=== PATIENT | male | born 1940 | race Caucasian/White ===

== ENCOUNTER 2021-06-02 09:35 | Emergency (ER) | payer OTHER, MEDICARE, SELFPAY ==
[2021-06-02] VITALS (23 sets, daily range): BP systolic 100–177; BP diastolic 71–123; PULSE 70–130; RESP 14–26; TEMP 36.8; O2SAT 90–97
--- NOTE | 2021-06-02 09:30 | RT.EKG_ITS ---
APPROVED REPORT Exam: Resting ECG Reason for Exam: arm pain Patient Location: E HR:104 bpm ECG Measurements Heart Rate 104 AXIS AL [id number] P [id number] QRSd 90 QRS -14 QT 354 T 6 QTc 466 Conclusion Atrial flutter with predominant 3:1 AV block...A-rate 294, multiple Ps Borderline repol abnormality, diffuse leads...ST dep, T flat/neg, ant/lat/inf irregularly irregular rhythm, narrow complex, non ischemic; sawtooth baseline in II, consider Aflutte r v afib
--- NOTE | 2021-06-02 09:45 | RT.EKG_ITS ---
APPROVED REPORT Exam: Resting ECG Reason for Exam: PALPATATIONS Patient Location: E HR:72 bpm ECG Measurements Heart Rate 72 AXIS TX [id number] P [id number] QRSd 86 QRS -13 QT 378 T -2 QTc 413 Conclusion Atrial flutter with predominant 4:1 AV block...A-rate 283, multiple Ps regular, narrow complex, likely flutter waves, non ischemic
--- NOTE | 2021-06-02 10:03 | W.ED.GENAD ---
Discharge Plan Disposition Patient Disposition: HOME Condition: Improving Discharge Details Clinical Impression: Atrial flutter Primary Care Provider: Basia Ruiz ED Provider: Fox Mirza Home Meds and New Rx's Prescriptions: Continued magnesium oxide 420 mg Tablet 420 mg PO DAILY 0RF metoprolol succinate 200 mg Tablet Extended Release 24 Hr 200 mg PO DAILY 0RF acetaminophen-codeine 300-30 mg Tablet 1 tab PO .Q8HRS PRN0RF diltiazem HCl 120 mg Capsule,Extended Release 24hr 120 mg PO DAILY 0RF oxycodone 5 mg Tablet 5 mg PO .Q6HRS 0RF Discharge Instructions Instructions: Atrial Flutter (ED) Additional Instructions: Please be seen by your primary care physician please take your medications as prescribed. Return to the emergency department for any worsening chest pain shortness of breath or any other symptomatology. Your symptoms today were likely caused by fast heart rate in the setting of atrial flutter. Medical Decision Making 80-year-old male history of a flutter on apixaban presents left arm discomfort and 2 days of poor sleep, noted to be tachycardic irregularly irregular rhythm, EKG A. fib versus a flutter, is irregularly irregular narrow complex rhythm without ischemic changes, some sawtooth appearance in lead II, no peripheral edema, neurologically intact, no signs of trauma, full range of motion of bilateral upper extremities, patient did have some diaphoresis before arrival, consider symptomatic A. fib/a flutter with RVR versus ACS versus CHF versus less likely PE or aortic pathology versus less likely infectious process, low suspicion for intracranial process such as ischemic or hemorrhagic stroke. Will provide light fluid, attempt to rate control, as patient is as high as 145 on the monitor, will obtain troponin electrolytes chest x-ray close reassessment 12: 09 patient resting comfortably no acute distress no chest pain or shortness of breath. Rate controlled a flutter at approximately 72 bpm. X-ray clear. Patient feels comfortable following up with primary care. Given home care instructions and return precautions. Lab Data Lab results narrative: Laboratory Tests Range/Units 06/02/21 06/02/21 06/02/21 10:01 10:01 10:01 WBC (4.4-10.8) 10^3/uL 9.16 RBC (4.36-5.78) 10^6/uL 5.82 H Hgb (13.5-17.5) g/dL 18.3 H Hct (40.0-50.0) % 55.3 H MCV (80-95) fL 95.0 MCH (27.0-33.0) pg 31.4 MCHC (32.0-36.0) % 33.1 RDW (11.8-14.1) % 15.4 H Plt Count (130-400) 10^3/uL 185 MPV (8.0-11.0) fL 11.0 Immature Gran % 1.1 Neutrophils % 79.1 Lymphocytes % 9.5 Monocytes % 8.6 Eosinophils % 1.2 Basophils % 0.5 Nucleated RBC % % 0 Absolute Neutrophils (1.2-6.7) 10^3/uL 7.24 H Absolute Lymphocytes (1.2-3.4) 10^3/uL 0.87 L Absolute Monocytes (0.1-0.8) 10^3/uL 0.79 Absolute Eosinophils (0.0-0.7) 10^3/uL 0.11 Absolute Basophils (0.0-0.2) 10^3/uL 0.05 RBC Morphology Normal PT (9.3-11.0) sec INR (0.9-1.1) APTT (21.0-27.5) sec Sodium (136-145) mmol/L 136 Potassium (3.5-5.1) mmol/L 4.5 Chloride (98-107) mmol/L 100 Carbon Dioxide (21.0-32.0) mmol/L 26.2 Anion Gap (3-11) mmol/L 9.8 BUN (7-18) mg/dL 16 Creatinine (0.70-1.30) mg/dL 1.1 Estimated GFR/1.73 m2 (mL/min/1.73m2) >= 60.00 Glucose (74-106) mg/dL 122 H Calcium (8.5-10.1) mg/dL 9.7 Magnesium (1.8-2.4) mg/dL 1.9 Total Bilirubin (0.2-1.0) mg/dL 0.7 AST (15-37) U/L 23 ALT (16-63) U/L 33 Alkaline Phosphatase (46-116) U/L 96 Troponin I (<or=60) ng/L < 50 NT-Pro-B Natriuret Pep (<300) pg/mL 790 H Total Protein (6.4-8.2) g/dL 8.2 Albumin (3.4-5.0) g/dL 4.1 Range/Units 06/02/21 06/02/21 10:44 10:44 WBC (4.4-10.8) 10^3/uL RBC (4.36-5.78) 10^6/uL Hgb (13.5-17.5) g/dL Hct (40.0-50.0) % MCV (80-95) fL MCH (27.0-33.0) pg MCHC (32.0-36.0) % RDW (11.8-14.1) % Plt Count (130-400) 10^3/uL MPV (8.0-11.0) fL Immature Gran % Neutrophils % Lymphocytes % Monocytes % Eosinophils % Basophils % Nucleated RBC % % Absolute Neutrophils (1.2-6.7) 10^3/uL Absolute Lymphocytes (1.2-3.4) 10^3/uL Absolute Monocytes (0.1-0.8) 10^3/uL Absolute Eosinophils (0.0-0.7) 10^3/uL Absolute Basophils (0.0-0.2) 10^3/uL RBC Morphology PT (9.3-11.0) sec 10.8 INR (0.9-1.1) 1.1 APTT (21.0-27.5) sec 28.0 H Sodium (136-145) mmol/L Potassium (3.5-5.1) mmol/L Chloride (98-107) mmol/L Carbon Dioxide (21.0-32.0) mmol/L Anion Gap (3-11) mmol/L BUN (7-18) mg/dL Creatinine (0.70-1.30) mg/dL Estimated GFR/1.73 m2 (mL/min/1.73m2) Glucose (74-106) mg/dL Calcium (8.5-10.1) mg/dL Magnesium (1.8-2.4) mg/dL Total Bilirubin (0.2-1.0) mg/dL AST (15-37) U/L ALT (16-63) U/L Alkaline Phosphatase (46-116) U/L Troponin I (<or=60) ng/L NT-Pro-B Natriuret Pep (<300) pg/mL Total Protein (6.4-8.2) g/dL Albumin (3.4-5.0) g/dL HPI General Date/Time Provider Initiated Documentation: 06/02/21 09:36. HPI Narrative: 80-year-old male history of a flutter/A. fib on apixaban, daily metoprolol use, presents feeling generally unwell over the past 2 days has been unable to sleep, endorses left arm discomfort radiating from shoulder to fingers earlier today, denies chest pain or shortness of breath denies leg swelling. Endorses relative normal activity. No infectious symptomatology Related Data Home Medications Medication Instructions Recorded Confirmed acetaminophen 300 mg-codeine 30 mg 1 tab PO .Q8HRS PRN 06/02/21 06/02/21 tablet diltiazem HCl 120 mg 120 mg PO DAILY 06/02/21 06/02/21 capsule,extended release 24 hr magnesium oxide 420 mg tablet 420 mg PO DAILY 06/02/21 06/02/21 metoprolol succinate 200 mg 200 mg PO DAILY 06/02/21 06/02/21 tablet,extended release 24 hr oxycodone 5 mg tablet 5 mg PO .Q6HRS 06/02/21 06/02/21 Allergies Allergy/AdvReac Type Severity Reaction Status Date / Time No Known Allergies Allergy Unverified 06/02/21 09:50 General Stated Complaint: Palpitatns ANIL: 2 Review of Systems Narrative: Review of Systems Constitutional: negative Eyes: negative ENT: negative Cardiovascular: Left arm pain Respiratory: negative Gastrointestinal: negative : negative Musculoskeletal: negative Skin: negative Neurologic: negative Psych: negative PFSH All Active Problems (Updated 06/02/21 @ 12:10 by Fox Mirza MD) Atrial flutter (Acute) Medical History (Updated 06/02/21 @ 12:10 by Fox Mirza MD) Atrial fibrillation/flutter Surgical History (Updated 06/02/21 @ 11:51 by Eric De RN) Renal transplant recipient Social History Smoking/Tobacco Use Status: Former Tobacco Use Smoking risk assessment performed?: Yes Alcohol Intake: never Substance use type: does not use Exam Narrative Exam Narrative: Physical Examination General: alert, awake, cooperative, resting comfortably, no acute distress HEENT: normocephalic, atraumatic; PERRL, EOM intact, conjunctiva normal; no nasal discharge; moist mucous membranes, oral and pharyngeal mucosa normal, tolerating secretions Neck: supple, trachea midline; full ROM Chest: normal to inspection Respiratory: normal respiratory effort, speaking in full sentences, clear to auscultation, no wheezing, rales or rhonchi Cardiac: Irregularly irregular rhyth, S1S2 intact, no murmurs rubs or gallops GI: abdomen soft, non-tender, non-distended; no palpable mass or hepatosplenomegaly Skin: no lesions, rashes or trauma appreciated Neuro: AAOx3, normal speech, moving all extremities; equal strength out of 5 upper and lower extremities Extremities: No peripheral edema, range of motion of shoulder elbow wrist and fingers intact 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 warm well perfused extremities Psych: Appropriate mood and affect Course Vital Signs Vital signs: Vital Signs Temperature 36.8 C 06/02/21 09:46 Pulse 130 H 06/02/21 09:46 Respiratory Rate 24 06/02/21 09:46 Blood Pressure 177/101 H 06/02/21 09:46 Pulse Oximetry 96 06/02/21 09:46 Temperature 36.8 C 06/02/21 09:46 Temperature Source Skin 06/02/21 09:46 Pulse 130 H 06/02/21 09:46 Respiratory Rate 24 06/02/21 09:46 Respiratory Effort 06/02/21 09:46 Blood Pressure 177/101 H 06/02/21 09:46 Blood Pressure Position Supine 06/02/21 09:46 Pulse Oximetry 96 06/02/21 09:46 Oxygen Delivery Method Room Air 06/02/21 09:46 Oxygen Flow Rate 0 06/02/21 09:46 Pain Level 8 06/02/21 09:46
[2021-06-02 10:13] LABS: Absolute Basophil Count 0.05 10^3/uL (0.0-0.2); Absolute Eosinophil Count 0.11 10^3/uL (0.0-0.7); Absolute Lymphocyte Count 0.87 10^3/uL (1.2-3.4); Absolute Monocyte Count 0.79 10^3/uL (0.1-0.8); Absolute Neutrophil Count 7.24 10^3/uL (1.2-6.7); Basophils % 0.5; Eosinophils % 1.2; HCT 55.3 % (40.0-50.0); HGB 18.3 g/dL (13.5-17.5); Immature Grans % 1.1; Lymphocytes % 9.5; MCH 31.4 pg (27.0-33.0); MCHC 33.1 % (32.0-36.0); Monocytes % 8.6; Neutrophils % 79.1; Nucleated RBC 0 %; Platelet Count 185 10^3/uL (130-400); RBC 5.82 10^6/uL (4.36-5.78); RDW 15.4 % (11.8-14.1); RDW-SD 53.8 fL; WBC 9.16 10^3/uL (4.4-10.8)
[2021-06-02] MEDS: dilTIAZem 25 MG/5 ML VIAL 15 MG IVP (10:21)
[2021-06-02] MEDS: Normal Saline 500 ML 1000 ML IV (10:21)
[2021-06-02] MEDS: MORPHine 4 MG/ML SYR 2 MG IVP (10:22)
[2021-06-02] MEDS: Ondansetron 4 MG/2 ML VIAL IVP (10:22)
[2021-06-02 10:28] LABS: Magnesium 1.9 mg/dL (1.8-2.4)
[2021-06-02 10:32] LABS: ALT 33 U/L (16-63); AST 23 U/L (15-37); Albumin 4.1 g/dL (3.4-5.0); Alkaline Phosphatase 96 U/L (46-116); Anion Gap 9.8 mmol/L (3-11); BUN 16 mg/dL (7-18); Bilirubin, Total 0.7 mg/dL (0.2-1.0); CO2 26.2 mmol/L (21.0-32.0); CREATININE 1.1 mg/dL (0.70-1.30); Calcium 9.7 mg/dL (8.5-10.1); Chloride 100 mmol/L (98-107); Glucose 122 mg/dL (74-106); NT-proBNP 790 pg/mL (<300); Potassium 4.5 mmol/L (3.5-5.1); Sodium 136 mmol/L (136-145); Total Protein 8.2 g/dL (6.4-8.2); Troponin I < 50 ng/L (<or=60)
[2021-06-02 10:38] LABS: Diff Comment Diff Reviewed; RBC Morphology Normal
[2021-06-02 10:58] LABS: INR 1.1 (0.9-1.1); Prothrombin Time 10.8 sec (9.3-11.0)
--- NOTE | 2021-06-02 11:05 | DI.RAD_ITS ---
Exam(s) XR PORTABLE CHEST AP EXAM: XR PORTABLE CHEST AP CLINICAL HISTORY: tachycardia, chest pain. TECHNIQUE: 2D digital imaging was performed. COMPARISON: No exams were available for comparison FINDINGS: Mild cardiomegaly. Tortuous descending thoracic aorta noted. No obvious lung infiltrates nor pleural effusions. No pulmonary edema. No pneumothorax. Tiny calci fied granuloma mid right lung zone noted. IMPRESSION: No obvious acute pulmonary findings on this single AP portable view of the chest. DATA REPOSITORY: RADIATION DOSE DELIVERED: All CT scans at this facility use at least one of these dose optimization techniques: automated exposure control; mA and/or kV adjustment per patient size (includes targeted e xams where dose is matched to clinical indication); or iterative reconstruction.
== END 2021-06-02 12:22 | disposition home or self-care (01) ==
PROVIDERS: Emergency Provider Emergency Medicine; PCP Family Medicine
DX: I48.92 Unspecified atrial flutter (principal); M79.622 Pain in left upper arm; R00.2 Palpitations; R00.0 Tachycardia, unspecified; R07.9 Chest pain, unspecified; R61 Generalized hyperhidrosis; R06.89 Other abnormalities of breathing
CPT/HCPCS: 36415; 80053; 93005; 96361; 96374; 96375; 99284; 71045; 83735; 83880; 84484; 85025; 85610; 85730; 93010; J2270; J2405